=== PATIENT | female | born 1960 | race Caucasian/White ===

== ENCOUNTER → 2021-12-25 | Day surgery (SDC) | payer OTHER ==
[~2021-12-25] VITALS: Ht 170.2 cm; Wt 76.7 kg
[~2021-12-25] MED LIST: ATORVASTATIN CA40 MG PO; JANUVIA 100MG100 MG PO; METFORMIN HCL500 M3 PO
--- NOTE | 2021-12-25 09:54 | NUR ---
[facility]40 [facility] RACHEL PABON [employer] SUPERVISOR NOTIFIED. PATIENT TO FOLLOW UP WITH PCP. NO OTHER ORDERS RECEIVED
== END | disposition home or self-care (01) ==
LOC: FAS 06:57
DX: Z12.11 Encounter for screening for malignant neoplasm of colon (principal); K57.30 Diverticulosis of large intestine without perforation or abscess without bleeding; K64.8 Other hemorrhoids; I10 Essential (primary) hypertension; E78.00 Pure hypercholesterolemia, unspecified; E11.9 Type 2 diabetes mellitus without complications; E78.5 Hyperlipidemia, unspecified; Z87.891 Personal history of nicotine dependence; Z88.5 Allergy status to narcotic agent; Z79.84 Long term (current) use of oral hypoglycemic drugs; Z79.899 Other long term (current) drug therapy; Z82.49 Family history of ischemic heart disease and other diseases of the circulatory system
CPT/HCPCS: J2250; J2704; J7120

== ENCOUNTER 2022-07-05 07:34 | Emergency (ER) | payer OTHER ==
[2022-07-05 08:28] LABS: BASOPHIL 0.3 % (0-2); EOSINOPHIL 0 % (0-5); HCT 35.5 % (37.0-47.0); HGB 12.2 g/dl (12.5-16.0); LYMPHOCYTE 27.4 % (15-48); MCH 29.8 pg (25.0-31.0); MCHC 34.4 g/dL (32.0-36.0); MCV 86.8 fL (78.0-100.0); MONOCYTE 15.4 % (0-12); MPV 9.2 fL (6.0-9.5); NEUTROPHIL 56.6 % (41-80); NRBC 0; PLT 154 K/uL (150-400); RBC 4.09 M/uL (4.20-5.40); RDW 12.2 % (11.5-14.0); WBC 3.2 K/uL (4.0-10.5)
[2022-07-05 09:49] LABS: BUN 14 mg/dL (7-18); CREATININE 0.68 mg/dL (0.51-0.95); GLUCOSE 204 mg/dL (74-106)
[2022-07-05 09:50] LABS: ALBUMIN 3.4 g/dL (3.4-5.0); ALKALINE PHOSHATASE 81 U/L (46-116); ALT 59 U/L (14-59); BILIRUBIN - TOTAL 0.3 mg/dL (0.2-1.0); CHLORIDE 99 mmol/L (98-107); CO2 (BICARBONATE) 28 mmol/L (21-32); GLOBULIN (CALCULATION) 3.9 g/dL; POTASSIUM 3.9 mmol/L (3.5-5.1); TOTAL PROTEIN 7.3 g/dL (6.4-8.2)
[2022-07-05 09:51] LABS: C-REACTIVE PROTEIN < 0.20 mg/dL (<=0.90); LIPASE <10 U/L (73-393)
[2022-07-05] MEDS ORDERED: ONDANSETRON ODT4 MG PO (11:39)
[2022-07-05 13:00] LABS: AST 57 U/L (15-37)
[2022-07-05 13:06] LABS: BILIRUBIN NEGATIVE (NEGATIVE); BLOOD NEGATIVE Ery/uL (NEGATIVE); CLARITY CLEAR (CLEAR); COLOR YELLOW (YELLOW); GLUCOSE (U) NORMAL (NORMAL); LEUKOCYTES NEGATIVE Leu/uL (NEGATIVE); NITRITE NEGATIVE (NEGATIVE); PROTEIN NEGATIVE (NEGATIVE); UROBILINOGEN 0.2 mg/dL (0.2-1.0)
== END 2022-07-05 14:03 | disposition home or self-care (01) ==
LOC: FER 07:34
PROVIDERS: Emergency Medicine
DX: U07.1 COVID-19 (principal); R91.1 Solitary pulmonary nodule; I10 Essential (primary) hypertension; E11.9 Type 2 diabetes mellitus without complications; Z28.310 Unvaccinated for COVID-19; Z79.4 Long term (current) use of insulin; Z79.84 Long term (current) use of oral hypoglycemic drugs; Z79.899 Other long term (current) drug therapy; Z88.5 Allergy status to narcotic agent; Z87.891 Personal history of nicotine dependence
CPT/HCPCS: 36415; 36600; 71045; 71275; 80053; 81003; 82009; 82803; 83605; 83690; 84145; 85025; 86140; 87088; 93005; J2270; J2405; J7030; Q9967; U0002